=== PATIENT | male | born 1965 | race Hispanic/Latino ===

== ENCOUNTER 2018-08-28 23:30 | Observation (INO) | payer BC ==
[2018-08-29] MEDS ORDERED: Ondansetron PF 4 MG/2 ML Vial IVP PRN (00:19)
[2018-08-29] MEDS ORDERED: Acetaminophen 325 MG TAB PO PRN (00:19)
[2018-08-29] MEDS ORDERED: Zolpidem Tartrate 5 MG TAB PO PRN (00:19)
--- NOTE | 2018-08-29 00:25 | PDOC.EVN ---
Event Note - Event Note Event Note: H&P [id number]
[2018-08-29] MEDS ORDERED: Nitroglycerin 2% Ointment 1 INCH/1 GM Packet ONE (02:11)
[2018-08-29] MEDS ORDERED: Acetaminophen 500 MG TAB ONE (02:11)
[2018-08-29 03:31] LABS: #Basophils 0.1 thou/uL (0.0-0.2); #Eosinphils 0.3 thou/uL (0.0-0.7); #Lymphocytes 2.4 thou/uL (1.20-3.40); #Monocytes 0.5 thou/uL (0.11-0.59); #Neutrophils 3.6 thou/uL (1.40-6.50); %Basophils 0.8 % (0.0-1.0); %Eosinophils 3.8 % (0.0-10.0); %Lymphocytes 35.4 % (21.0-51.0); %Monocytes 7.2 % (0.0-10.0); %Neutrophils 52.8 % (42.0-75.0); Hemoglobin 14.3 g/dL (14.0-18.0); Mean Corpuscular HGB CONC 33.8 g/dL (32.0-36.0); Mean Corpuscular Hemoglobin 33.3 pg (27.0-31.0); Mean Corpuscular Volume 98.4 fL (78.0-98.0); Mean Platelet Volume 7.9 fL (7.4-10.4); Platelet Count 149 thou/uL (130-400); RBC Distribution Width 11.2 % (11.5-14.5); White Blood Cell (WBC) Count 6.9 thou/uL (4.8-10.8)
[2018-08-29 03:46] LABS: Anion Gap 13 mmol/L (10-20); BUN (Urea Nitrogen) 14 mg/dL (8.4-25.7); Calc. Creatinine Clearance 0 mL/min (70-130); Calcium 9.2 mg/dL (7.8-10.44); Carbon Dioxide 27 mmol/L (22-29); Chloride 103 mmol/L (98-107); Estimated GFR-MDRD 76; Glucose 120 mg/dL (70-105); Potassium 3.5 mmol/L (3.5-5.1); Sodium 139 mmol/L (136-145)
[2018-08-29 03:50] LABS: Troponin I Less than 0.010 ng/mL (< 0.028)
[2018-08-29 06:12] LABS: Troponin I Less than 0.010 ng/mL (< 0.028)
--- NOTE | 2018-08-29 08:27 | HP ---
CHIEF COMPLAINT: Chest pain. HISTORY OF PRESENT ILLNESS: This is a 53-year-old male who was presented to the hospital complaining of chest pain. The patient stated that the chest pain was substernal, improved at this point in time during evaluation in the hospital in the ER. The patient states that the pain has been going on for about 3 to 4 weeks. States that he has no alleviating or aggravating factors. Also, admits however to some dyspnea on exertion, but not chest pain on exertion. The patient states that he has no other associated symptoms. Denies any other complaints. States that his past medical history is pertinent for gout. Otherwise, he does not take any other medications. Does not have any other scheduled disease or any prosthesis. The patient denies smoking or drinking. The patient states that he does have a family history of diabetes mellitus and hypertension as well as diabetes and coronary artery disease in his father who is now . The patient otherwise seen and examined, doing well. at bedside. All questions answered. REVIEW OF SYSTEMS: All systems reviewed. Pertinent positive in HPI, otherwise negative. ALLERGIES: NO KNOWN DRUG ALLERGIES. FAMILY HISTORY: Positive for diabetes mellitus and hypertension. SOCIAL HISTORY: No drinking or smoking. PHYSICAL EXAMINATION: VITAL SIGNS: Blood pressure is 168/88, pulse of 75, temperature of 98.6, respiratory rate of 18, O2 saturation 98% on room air. GENERAL: The patient is lying in bed acutely, no discomfort. HEENT: Pupils are equal, round, and reactive to light and accommodation. Extraocular muscles are intact. Oral cavity is moist and pink. NECK: Supple, mobile, nontender. Thyroid appreciated. CARDIOVASCULAR: Regular rate and rhythm. S1 and S2. No murmurs, rubs, or gallops appreciated. RESPIRATORY: Clear to auscultation bilaterally. No respiratory distress. No increase in AP diameter. ABDOMEN: Rotund. Positive bowel sounds. Soft, nontender, nondistended. No rebound or guarding noted. EXTREMITIES: 2+ peripheral pulses. No cyanosis, clubbing, or edema noted. NEUROLOGICAL: Cranial nerves 2 through 12 are intact. No loss of motor or sensory function. LABORATORY DATA: Basic metabolic panel within normal limits. CBC within normal limits. ASSESSMENT: Chest pain. PLAN: At this point in time, 1. We will admit the patient to internal medicine team. 2. Followup for observation. 3. Cardiac exams to be done. If negative, we will probably discharge the patient in the morning following monitoring overnight. Case and plan discussed with the patient at length, awaited 's advice. He understood and agreed with this plan. at bedside. All questions answered. Job ID: [id number]
[2018-08-29] MEDS ORDERED: Aspirin Chewable 81 MG TAB ONE (08:55)
[2018-08-29] MEDS ORDERED: Enoxaparin Sodium 40 MG/0.4 ML SYRINGE ONE (08:55)
[2018-08-29] MEDS ORDERED: Aspirin 81 mg Enteric Coated Tablet PO SCH (09:00)
[2018-08-29] MEDS ORDERED: Enoxaparin Sodium 40 MG/0.4 ML SYRINGE SC SCH (09:00)
[2018-08-29 14:14] VITALS: BMI 36.8
[2018-08-29 14:15] VITALS: BP 136/80; TEMP 98.1
--- NOTE | 2018-08-29 15:11 | NM ---
STRESS ONLY MYOCARDIAL PERFUSION EVALUATION: DATE: 08/29/18 INDICATION: Chest pain. RADIOPHARMACEUTICAL: 27.5 mCi technetium-99m sestamibi IV with stress. FINDINGS: No definite myocardial perfusion defect is evident on the stress only examination. There is mild left ventricular dilatation with an end-diastolic volume of 132 mL. There is normal wall motion and thick ening. Estimated LVEF is 61%. IMPRESSION: 1. No myocardial perfusion defect seen on the stress only exam. 2. Normal wall motion and thickening. 3. Mild left ventricular dilatation. POS: ANABELLE
--- NOTE | 2018-08-29 17:54 | DIS ---
DATE OF ADMISSION: 08/28/2018 DATE OF DISCHARGE: 08/29/2018 DISCHARGE DIAGNOSES: 1. Atypical chest pain. 2. Hyperglycemia. 3. Obesity. 4. Gouty arthropathy. HOSPITAL COURSE: A 53-year-old male with past medical history significant only for gouty arthropathy, admitted due to acute onset of substernal chest pain. The patient reported that he has been having intermittent chest pain in the last 3 to 4 weeks prior to presentation. The chest pain resolved spontaneously with analgesic. Acute MD was ruled out with serial troponin. Given family history of coronary artery disease and diabetes as well as hypertension and the patient's body habitus, the patient was evaluated further with nuclear stress test, which however, was negative for reversible ischemia. The patient remained asymptomatic and hemodynamically stable and was subsequently discharged home. He however was noted to have mild hyperglycemia with blood glucose of 120. He was asked to follow up with the PCP for further evaluation of hyperglycemia. PHYSICAL EXAMINATION: VITAL SIGNS: BP 136/80, pulse 87, respiratory rate 20, temperature 98.1, SpO2 of 97 on room air. GENERAL: Obese male, in no obvious distress. Afebrile, anicteric, acyanotic. HEENT: Normocephalic and atraumatic. Pupils are equal and reacting to light. Oral mucosa is moist. NECK: Supple, nontender with full range of motion. CARDIOVASCULAR: Regular rhythm and rate with normal heart sounds 1 and 2. No murmur was appreciated. RESPIRATORY: Good air entry bilaterally with no obvious crackle or rhonchi or use of accessory muscles. GI: obese, soft, nontender, nondistended with normal bowel sounds. EXTREMITIES: Grossly normal looking and atraumatic with no edema or erythema. NEUROLOGIC: Conscious and alert and oriented x3 with appropriate mental status. The patient is moving all extremities. DISCHARGE CONDITION: Stable. DISCHARGE MEDICATIONS: 1. Allopurinol 100 mg p.o. b.i.d. 2. Aspirin 81 mg daily. FOLLOWUP: The patient is to follow up with PCP within 1 week of discharge. Job ID: [id number]
== END 2018-08-29 18:34 | disposition home or self-care (01) ==
LOC: ERS 23:30 → ERHOLD 23:55 → 2SW 08-29 14:07
PROVIDERS: ADMIT Internal Medicine; ATTEND Internal Medicine
DX: R07.89 Other chest pain (principal); M10.00 Idiopathic gout, unspecified site; R73.9 Hyperglycemia, unspecified; E66.9 Obesity, unspecified; Z68.36 Body mass index [BMI] 36.0-36.9, adult; Z79.82 Long term (current) use of aspirin; Z79.899 Other long term (current) drug therapy
CPT/HCPCS: 36415; 78452; 80048; 84484; 85025; 93005; 93017; A9500; G0378; J1650